=== PATIENT | female | born 1940 | race Caucasian/White ===

== ENCOUNTER 2018-07-06 09:49 | Day surgery (SDC) | payer OTHER ==
[2018-07-04 11:04] VITALS: BMI 24.0
[2018-07-06] MEDS ORDERED: PROPOFOL 20 ML ONE (10:39)
[2018-07-06] MEDS ORDERED: LIDOCAINE HCL/PF 2% SDV 5ML VIAL ONE (10:39)
[2018-07-06 11:12] VITALS: TEMP 98
[2018-07-06 11:39] VITALS: BP 144/78; PULSE 71
--- NOTE | 2018-07-08 18:18 | PATH ---
Surgical Pathology Report Patient Name: TARA HARRISON [facility]. Rec. #: [id number] /Age/Gender: 1940 (Age: 77) / F Account: [id number] Location: [facility] Taken: 07/06/2018 Received: 07/06/2018 Reported: 07/08/2018 Physicians: Tara Feldman M.D. Specimen(s) Received A: DUODENUM SECOND PORTION B: BX ANTRUM C: BX GE JUNCTION Clinical History Abdominal pain Postoperative diagnosis: Gastritis Final Diagnosis A. DUODENUM, SECOND PORTION, BIOPSY: DUODENAL MUCOSA WITHOUT SIGNIFICANT PATHOLOGIC FINDINGS. B. STOMACH, ANTRUM, BIOPSY: GASTRIC ANTRAL MUCOSA WITH MILD CHRONIC GASTRITIS. IMMUNOHISTOCHEMICAL STAIN FOR H. PYLORI IS NEGATIVE. C. GE JUNCTION, BIOPSY: COLUMNAR (CARDIAC-TYPE) MUCOSA WITH MILD CHRONIC GASTRITIS AND FOCAL INTESTINAL METAPLASIA. NO HELICOBACTER ORGANISMS IDENTIFIED. NO SQUAMOUS MUCOSA OR DYSPLASIA IDENTIFIED. Electronically Signed Tara Parry M.D. Gross Description A. Received in formalin, labeled "biopsy second portion of duodenum" is a multani, irregular portion of soft tissue measuring 0.4 cm. in greatest dimension. The specimen is submitted in toto in one cassette. B. Received in formalin, labeled "biopsy antrum" is a multani, irregular portion of soft tissue measuring 0.5 cm. in greatest dimension. The specimen is submitted in toto in one cassette. C. Received in formalin, labeled "biopsy GE junction" is a multani, irregular portion of soft tissue measuring 0.4 cm. in greatest dimension. The specimen is submitted in toto in one cassette. 07/07/2018 [facility]07/07/2018
== END 2018-07-06 11:45 | disposition home or self-care (01) ==
LOC: FASU-ENDO 09:49
PROVIDERS: ATTEND Internal Medicine Gastroenterology
PROC: 0DB68ZX Excision of Stomach, Via Natural or Artificial Opening Endoscopic, Diagnostic (ICD-10-PCS; 2018-07-06)
PROC: 0DB48ZX Excision of Esophagogastric Junction, Via Natural or Artificial Opening Endoscopic, Diagnostic (ICD-10-PCS; 2018-07-06)
PROC: 0DB98ZX Excision of Duodenum, Via Natural or Artificial Opening Endoscopic, Diagnostic (ICD-10-PCS; principal; 2018-07-06 10:15)
DX: K29.50 Unspecified chronic gastritis without bleeding (principal); R13.10 Dysphagia, unspecified
CPT/HCPCS: 82962; 88305-TC; 88342-TC

== ENCOUNTER 2018-09-28 09:43 | Day surgery (SDC) | payer OTHER ==
[2018-09-22 11:42] VITALS: BMI 25.7
[2018-09-28] MEDS ORDERED: LIDOCAINE HCL/PF 2% SDV 5ML VIAL ONE (11:27)
[2018-09-28] MEDS ORDERED: PROPOFOL 20 ML ONE (11:27)
[2018-09-28 11:57] VITALS: PULSE 75; TEMP 98.2
[2018-09-28 12:50] VITALS: BP 152/62
--- NOTE | 2018-09-30 09:49 | PATH ---
Surgical Pathology Report Patient Name: TARA HARRISON [facility]. Rec. #: [id number] /Age/Gender: 1940 (Age: 77) / F Account: [id number] Location: [facility] Taken: 09/28/2018 Received: 09/28/2018 Reported: 09/30/2018 Physicians: Tara Feldman M.D. Specimen(s) Received A: SECOND PORTION OF DUODENUM B: BX ANTRUM C: BX GE JUNCTION Clinical History Barretts esophagus Postoperative diagnosis: Rule out dysplasia, Stein's, gastritis Final Diagnosis A. SECOND PORTION OF DUODENUM, BIOPSY: DUODENAL MUCOSA WITH NO PATHOLOGIC FINDINGS. B. ANTRUM, BIOPSY: MODERATE CHRONIC GASTRITIS WITH INTESTINAL METAPLASIA. IMMUNOSTAIN IS NEGATIVE FOR H. PYLORI ORGANISMS. C. GE JUNCTION, BIOPSY: COLUMNAR (GASTRIC-TYPE) MUCOSA SHOWING MILD CHRONIC INFLAMMATION. NO INTESTINAL METAPLASIA OR DYSPLASIA IS IDENTIFIED. NO ESOPHAGEAL (SQUAMOUS) MUCOSA IS IDENTIFIED. Electronically Signed Shari Kingsley M.D. Gross Description A. Received in formalin, labeled "second portion of duodenum" is a multani, irregular portion of soft tissue measuring 0.3 cm. in greatest dimension. The specimen is submitted in toto in one cassette. B. Received in formalin, labeled "antrum" is a multani, irregular portion of soft tissue measuring 0.4 cm. in greatest dimension. The specimen is submitted in toto in one cassette. C. Received in formalin, labeled "GE junction" are 4 multani, irregular portions of soft tissue ranging from 0.1-0.5 cm. in greatest dimension. The specimens are submitted in toto in one cassette. 09/28/201809/28/2018
== END 2018-09-28 12:50 | disposition home or self-care (01) ==
LOC: FASU-ENDO 09:43
PROVIDERS: ATTEND Internal Medicine Gastroenterology
PROC: 0DB78ZX Excision of Stomach, Pylorus, Via Natural or Artificial Opening Endoscopic, Diagnostic (ICD-10-PCS; 2018-09-28)
PROC: 0DB68ZX Excision of Stomach, Via Natural or Artificial Opening Endoscopic, Diagnostic (ICD-10-PCS; 2018-09-28)
PROC: 0DB18ZX Excision of Upper Esophagus, Via Natural or Artificial Opening Endoscopic, Diagnostic (ICD-10-PCS; 2018-09-28)
PROC: 0DB28ZX Excision of Middle Esophagus, Via Natural or Artificial Opening Endoscopic, Diagnostic (ICD-10-PCS; 2018-09-28)
PROC: 0DB38ZX Excision of Lower Esophagus, Via Natural or Artificial Opening Endoscopic, Diagnostic (ICD-10-PCS; 2018-09-28)
PROC: 0DB98ZX Excision of Duodenum, Via Natural or Artificial Opening Endoscopic, Diagnostic (ICD-10-PCS; principal; 2018-09-28 11:36)
DX: K22.70 Barrett's esophagus without dysplasia (principal); K29.50 Unspecified chronic gastritis without bleeding; K31.89 Other diseases of stomach and duodenum
CPT/HCPCS: 82962; 88305-TC; 88342-TC